=== PATIENT | female | born 2000 | race African-American/Black ===

== ENCOUNTER 2024-04-19 12:32 | Emergency (ER) | payer OTHER, SELFPAY ==
[2024-04-19 12:34] VITALS: BP 113/74
--- NOTE | 2024-04-19 12:52 | ED.GENMED ---
History of Present Illness
<Hina Morrow PA-C - Last Filed: 04/19/24 18:29>
General
Chief Complaint: Chest Pain
Source: patient
Exam Limitations: none
Time Seen by Provider: 04/19/24 12:52
Nursing documentation reviewed up to this point in time: agreed with
History of Present Illness
History of Present Illness:
24-year-old female with no past medical history presenting emergency department today with concerns of epigastric pain. She rates this a 10 out of 10 when it started. She originally presented to urgent care who sent her to the emergency department
via EMS for further evaluation. Patient reports that any movement aches or pain worse. Patient states that on the drive over here, she experienced a lot of pain with movement. She has no past abdominal surgical history. She denies any diarrhea
or constipation. She denies any nausea or vomiting today, however she has had many days of nausea leading up to this episode of acute pain. She denies recent frequent NSAID use. She compares this to period cramps although a lot worse. Her last
menstrual period was 2 weeks ago. She denies radiation of pain into the chest or to the back. She denies any dysuria or hematuria. She denies any dizziness or syncopal episodes. She takes no daily medications.
Review of Systems
<Hina Morrow PA-C - Last Filed: 04/19/24 18:29>
Review of Systems
All Other Systems: ROS reviewed and negative except as documented in HPI and ROS
Phy Exam
<Hina Morrow PA-C - Last Filed: 04/19/24 18:29>
Physical Exam
Physical Exam:
General: Patient is well appearing and in no acute distress; non-toxic
Skin: Warm and dry, no rashes or lesions
Head: Normocephalic, atraumatic
Eyes: Sclera non-icteric. EOMs intact. PERRLA.
Cardiac: Regular rate and rhythm, no murmurs
Pulm: Normal respiratory effort
Abdomen: Diffuse abdominal tenderness to palpation most pronounced in the epigastric region. Guarding present. No palpable masses. Normoactive bowel sounds.
Neuro: CN II-XII intact, no focal neurologic deficits.
Psychiatric: Appropriate mood and affect.
Scores
<Hina Morrow PA-C - Last Filed: 04/19/24 18:29>
Heart Score for Chest Pain Patients
STEMI patient?: No
History: Slightly or Non-Suspicious
ECG: Normal
Age: </= 45 years
Risk Factors: No Risk Factors
Troponin: </= Normal Limit
Heart Score for Chest Pain Patients: 0
Heart Score Risk: 2.5% MACE over next 6 weeks
Course
<KERRY Aden Last Filed: 04/19/24 18:29>
Orders/Labs/Results
Orders:
Orders
04/19/24 12:33
EKG [Electrocardiogram (*1)] Urgent
Reason for Study: Chest Pain
EKG- Treatment ONCE
04/19/24 12:39
IV Insert/Care/Rem.- Treatment PRN
04/19/24 12:40
Test Result ONCE
04/19/24 12:44
Complete Blood Count/With Diff Urgent
Comprehensive Metabolic Panel Urgent
HCG, Serum Qualitative Screen Urgent
Comment: Notify provider if positive test present
Lipase Urgent
Comment: LIPASE ADDED ON BY FLOOR 1:20PM 04-19-24
Troponin I Urgent
04/19/24 13:18
Add On- LAB Urgent
Tests Added?: lipase
04/19/24 13:29
Ketorolac [Toradol] 30 mg IV NOW STA
04/19/24 13:48
Pantoprazole [Protonix IV] 40 mg IV NOW STA
US Abdomen Complete/Upper Urgent
Reason For Exam: epigastric pain
Abnormal Lab Results
04/19/24
12:44
Absolute Monos (auto) 0.7 H 10^3/uL
(0.1-0.6)
BUN 6 L mg/dl
(7-17)
04/19/24 12:44
04/19/24 12:44
Vital Signs
Initial and Last Documented VS:
Initial Vital Signs
Temp Pulse Resp BP Pulse Ox
98.2 F 85 18 113/74 99
04/19/24 12:34 04/19/24 12:34 04/19/24 12:34 04/19/24 12:34 04/19/24 12:34
Last Documented Vital Signs
Temp Pulse Resp BP Pulse Ox
98.2 F 68 18 129/81 99
04/19/24 12:34 04/19/24 16:14 04/19/24 16:14 04/19/24 16:14 04/19/24 16:14
<Pedro Coleman, - Last Filed: 04/19/24 14:39>
Orders/Labs/Results
Orders:
Orders
04/19/24 12:33
EKG [Electrocardiogram (*1)] Urgent
Reason for Study: Chest Pain
EKG- Treatment ONCE
04/19/24 12:39
IV Insert/Care/Rem.- Treatment PRN
04/19/24 12:40
Test Result ONCE
04/19/24 12:44
Complete Blood Count/With Diff Urgent
Comprehensive Metabolic Panel Urgent
HCG, Serum Qualitative Screen Urgent
Comment: Notify provider if positive test present
Lipase Urgent
Comment: LIPASE ADDED ON BY FLOOR 1:20PM 04-19-24
Troponin I Urgent
04/19/24 13:18
Add On- LAB Urgent
Tests Added?: lipase
04/19/24 13:29
Ketorolac [Toradol] 30 mg IV NOW STA
04/19/24 13:48
Pantoprazole [Protonix IV] 40 mg IV NOW STA
US Abdomen Complete/Upper Urgent
Reason For Exam: epigastric pain
Abnormal Lab Results
04/19/24
12:44
Absolute Monos (auto) 0.7 H 10^3/uL
(0.1-0.6)
BUN 6 L mg/dl
(7-17)
04/19/24 12:44
04/19/24 12:44
Vital Signs
Initial and Last Documented VS:
Initial Vital Signs
Temp Pulse Resp BP Pulse Ox
98.2 F 85 18 113/74 99
04/19/24 12:34 04/19/24 12:34 04/19/24 12:34 04/19/24 12:34 04/19/24 12:34
Last Documented Vital Signs
Temp Pulse Resp BP Pulse Ox
98.2 F 68 18 129/81 99
04/19/24 12:34 04/19/24 16:14 04/19/24 16:14 04/19/24 16:14 04/19/24 16:14
Robbinlt;Hina Morrow PA-C - Last Filed: 04/19/24 18:29>
MDM/Problems Addressed
Differential Diagnosis Includes:
Differentials include gastritis, duodenitis, GERD, ACS, pancreatitis, biliary colic
MDM/Problems Addressed:
Abdominal pain:
24-year-old female with no past medical history presenting emergency department today with concerns of epigastric pain. She rates this a 10 out of 10 when it started. She originally presented to urgent care who sent her to the emergency department
via EMS for further evaluation. Patient reports that any movement aches or pain worse. On exam, she is well-appearing, her vitals are stable, she is afebrile. She does have significant epigastric tenderness on exam. Patient was treated with
Toradol and Protonix. This significantly improved her symptoms. We did obtain an ultrasound of the abdomen which was negative for any cholelithiasis or biliary duct obstruction. Patient was concerned about her liver function but the liver
appeared normal on ultrasound and her LFTs are unremarkable. Patient states that she feels totally normal now and feels like nothing ever happened. Discussed that this may have been an episode of GERD. Discussed trial of PPI for 2 weeks. Patient
in agreement with plan. Advise follow-up with primary care provider. Return precautions discussed. Patient stable for discharge
Chronic conditions affecting care:
n/a
Acute Exacerbation and/or Progression of Chronic Illness:
n/a
<Hina Morrow PA-C - Last Filed: 04/19/24 18:29>
*Pulse Oximetry
Patient hypoxic: no
*Critical Care Note
Total Time (30-74mins, 75-104mins- exclusive of procedures): Not Applicable
Data Reviewed
Review of Other/Old Records Reveals: Records (No previous ER records to review) and Discharge Summary (No discharge summaries in [facility] to review)
Source: patient and records
<Hina Morrow PA-C - Last Filed: 04/19/24 18:29>
Patient Management
Escalation/DeEscalation of care consider admission/obs:
Admit not indicated. Patient stable for discharge.
ED Attending Note
<Hina Morrwo PA-C - Last Filed: 04/19/24 18:29>
-
Portions of this chart may have been created with voice recognition software.� Occasional wrong word or��sound alike� substitutions may have occurred due to the inherent limitations of voice recognition software.
<Pedro Coleman DO - Last Filed: 04/19/24 14:39>
ED Attending Note
Patient seen and examined by attending physician: Yes
I performed the substantive portion of visit, reviewed & personally made and approve the management plan that is documented in note by myself or FAREED.: Yes
ED Attending Note:
This is a 24yo female who presents with epigastric abd pain that started this am. she awoke at 5 am and ate oatmeal. On my evaluation pain has resolved. Patient was given Protonix and Toradol. She denies nausea vomiting. No fevers. Family
member does have a history of cholelithiasis as well as gastritis. Patient denies melena or hematochezia. Exam: Awake alert and oriented. No focal deficits. No respiratory distress. Abdomen soft and nontender on my exam. There is no
distention. Assessment plan: Labs normal. Check ultrasound rule out cholelithiasis. If negative, daily PPI for 2 to 4 weeks.
Discharge Plan
Departure
Patient Disposition: Home (Routine Discharge)
Date of Disposition: 04/19/24
Time of Disposition: 15:56
Patient with high blood pressure during this ER visit?: No
Condition: Good
Discharge Problem:
Abdominal pain
Instructions: Acid Reflux and GERD in Adults (DC), Abdominal Pain
Prescriptions:
New
pantoprazole [Protonix] 20 mg tablet,delayed release (DR/EC)
20 mg PO DAILY 14 Days Qty: 14 0RF
Referrals:
UNKNOWN - PT DOES,NOT KNOW [Family Provider] -
Activity Restrictions/Additional Instructions:
Tomorrow, you can start taking Protonix. Please take 1 tablet once daily for 2-week trial.
Please follow-up with your primary care doctor in a week for reassessment of your symptoms.
Please return emergency department should you experience fevers or chills, acute worsening of symptoms, persistent abdominal pain, intractable vomiting, chest pain, shortness of breath, dizziness, numbness or any other symptoms concerning to you.
Interventions
Interventions:
*Risk Screen - Suicide Last Done: 04/19/24 12:34
*General Assessment Last Done: 04/19/24 12:34
*Neglect/Abuse Screening Last Done: 04/19/24 12:34
ED- Fall Risk Assessment Last Done: 04/19/24 13:25
*ED COVID-19 Vaccine History Last Done: 04/19/24 13:24
*Nursing Disposition Last Done: 04/19/24 16:14
ED- Cardiac Assessment Last Done: 04/19/24 13:25
Discharge Date and Time
Discharge Date/Time: 04/19/24 16:15
Print Language: OCCITAN
[2024-04-19 13:04] LABS: % Basophils 0.6 % (0-2); % Eosinophils 2.2 % (0-6); % Immature Granulocytes 0.2 % (0-0.5); % Monocytes 7.4 % (1.7-9.3); % Neutrophils 68.6 % (42.2-75.2); Absolute Basophils 0.1 10^3/uL (0-0.2); Absolute Eosinophils 0.2 10^3/uL (0-0.7); Absolute Monocytes 0.7 10^3/uL (0.1-0.6); Absolute Neutrophils 6.4 10^3/uL (1.4-6.5); Hematocrit 38.1 % (37.0-47.0); Hemoglobin 13.3 g/dL (12.0-16.0); Mean Corp Hgb Conc. 34.9 g/dL (33.0-37.0); Mean Corpuscular Hgb 29.2 pg (27.0-31.0); Mean Corpuscular Volume 83.7 fL (81.0-99.0); Nucleated Red Blood Cells % 0 %; Platelet Count 355 10^3/uL (130-400); Red Blood Cell Count 4.55 10^6/uL (4.20-5.40); Red Cell Dist. Width 12.6 % (11.5-14.5); White Blood Cell Count 9.3 10^3/uL (4.8-10.8)
[2024-04-19 13:07] LABS: ALT (SGPT) 16 U/L (0-35); AST (SGOT) 27 U/L (14-36); Albumin 4.6 g/dl (3.5-5.0); Alkaline Phosphatase 57 U/L (38-126); Blood Urea Nitrogen 6 mg/dl (7-17); Calcium 9.5 mg/dl (8.4-10.2); Carbon Dioxide 27 mmol/L (22-30); Chloride 102 mmol/L (98-107); Glucose 98 mg/dl (70-99); Sodium 136 mmol/L (135-145); Total Bilirubin 0.8 mg/dl (0.2-1.3); Total Protein 7.4 g/dl (6.3-8.2); eGFR > 60.00
[2024-04-19 13:08] LABS: HCG, Serum Qualitative Screen Negative
[2024-04-19 13:19] LABS: Troponin I < 0.012 ng/ml
[2024-04-19 13:24] VITALS: BMI 32.0
[2024-04-19 13:28] VITALS: BP 116/79
[2024-04-19] MEDS: TORADOL 30 MG IV (13:33)
[2024-04-19 13:42] LABS: Lipase 106 U/L (23-300)
[2024-04-19] MEDS: PROTONIX IV 40 MG IV (13:57)
[2024-04-19 14:00] VITALS: BP 106/76
[2024-04-19 16:14] VITALS: BP 129/81
== END 2024-04-19 16:15 | disposition home or self-care (01) ==
LOC: EMR 12:32
PROVIDERS: EMERGENCY PHYSICIAN Emergency Medicine
DX: R10.9 Unspecified abdominal pain (principal)
CPT/HCPCS: 99284; 96374; 96375; 76700; 80053; 83690; 84484; 84703; 85025; 93005